=== PATIENT | male | born 1990 ===

== ENCOUNTER 2017-09-24 08:06 | Outpatient (CLI) | payer OTHER ==
[~2017-09-24] VITALS: Ht 188 cm; Wt 70.3 kg
== END 2017-09-24 08:20 | disposition home or self-care (01) ==
LOC: OFIC 805 08:06
DX: J32.8 Other chronic sinusitis (principal); R04.0 Epistaxis

== ENCOUNTER 2017-11-24 09:10 | Outpatient (CLI) | payer OTHER ==
[~2017-11-24] VITALS: Ht 182.9 cm; Wt 70.3 kg
== END 2017-11-24 09:30 | disposition home or self-care (01) ==
LOC: OFIC 805 09:10
DX: R04.0 Epistaxis (principal); J32.8 Other chronic sinusitis

== ENCOUNTER 2018-01-30 08:28 | Outpatient (CLI) | payer OTHER | END 2018-01-30 08:40 | disposition home or self-care (01) | LOC: OFIC 805 08:28 | DX: J32.8 Other chronic sinusitis (principal); R04.0 Epistaxis ==

== ENCOUNTER → 2018-01-30 10:38 | Outpatient (CLI) | payer OTHER | END | disposition home or self-care (01) | LOC: LAB 10:38 | DX: J32.8 Other chronic sinusitis (principal) ==